=== PATIENT | male | born 1995 | race Caucasian/White ===

== ENCOUNTER 2018-02-07 07:20 | Observation (INO) | payer SELFPAY ==
[~2018-02-07] VITALS: Ht 182.9 cm; Wt 75.8 kg
[2018-02-07] MEDS ORDERED: SODIUM CHLORIDE 0.9% 1000ML 1,000 ML IV STA (07:38)
[2018-02-07] MEDS ORDERED: ONDANSETRON HCL INJ 2 MG/ML VIAL IV STA (07:38)
[2018-02-07] MEDS ORDERED: MORPHINE SULFATE 2 MG/ML SYR IV STA (07:38)
[2018-02-07] MEDS ORDERED: PANTOPRAZOLE 40 MG 10ML VIAL IV STA (07:38)
[2018-02-07 07:50] LABS: BASOPHILS % 0.2 % (0.0-1.0); EOSINOPHILS # (AUTO) 0.2 (0.0-0.4); HEMATOCRIT 41.7 % (38.2-49.6); HEMOGLOBIN 14.7 g/dL (14.0-18.0); LYMPHOCYTES % 11.2 % (18.0-39.1); MEAN CORPUSCULAR HEMOGLOBIN 30.2 pg (28-32); MEAN CORPUSCULAR HGB CONC 35.3 g/dL (31-35); MEAN CORPUSCULAR VOLUME 85.6 fL (81-99); MONOCYTES # (AUTO) 0.8 (0.2-0.8); MONOCYTES % 8.8 % (4.4-11.3); NEUTROPHILS # (AUTO) 7.2 (2.1-6.9); NEUTROPHILS % 77.6 % (38.7-80.0); PLATELET COUNT 170 x10e3/uL (140-360); RED BLOOD COUNT 4.87 x10e6/uL (4.3-5.7); RED CELL DISTRIBUTION WIDTH 12.2 % (11.7-14.4)
[2018-02-07 07:52] LABS: BILIRUBIN,URINE NEGATIVE (NEGATIVE); CLARITY,URINE CLEAR (CLEAR); COLOR,URINE YELLOW (YELLOW); KETONES,URINE NEGATIVE (NEGATIVE); LEUKOCYTE ESTERASE ,URINE NEGATIVE (NEGATIVE); NITRITE,URINE NEGATIVE (NEGATIVE); PROTEIN,URINE DIPSTICK NEGATIVE (NEGATIVE); URINE UROBILINOGEN 0.2 mg/dL (0.2 - 1)
[2018-02-07 08:00] LABS: INR 1.04; PARTIAL THROMBOPLASTIN TIME 27.4 seconds (23.8-35.5); PROTHROMBIN TIME 12.8 seconds (11.9-14.5)
[2018-02-07 08:04] LABS: EPITHELIAL CELLS,URINE RARE /LPF
[2018-02-07 08:09] LABS: ALANINE AMINOTRANSFERASE 15 IU/L (0-55); ALBUMIN 4.6 g/dL (3.5-5.0); ALBUMIN/GLOBULIN RATIO 1.8 (0.8-2.0); ALKALINE PHOSPHATASE 46 IU/L (40-150); AMYLASE 267 U/L (25-125); ANION GAP 14.6 mmol/L (8-16); BLOOD UREA NITROGEN 16 mg/dL (7-26); BUN/CREATININE RATIO 15 (6-25); CALCIUM 9.9 mg/dL (8.4-10.2); CARBON DIOXIDE 24 mmol/L (22-29); CHLORIDE 104 mmol/L (98-107); CREATININE, SERUM 1.06 mg/dL (0.72-1.25); EST GLOMERULAR FILTRATION RATE > 60 ML/MIN (60-); GLUCOSE 95 mg/dL (74-118); LIPASE 465 U/L (8-78); MAGNESIUM 1.9 MG/DL (1.3-2.1); POTASSIUM 3.6 mmol/L (3.5-5.1); SODIUM 139 mmol/L (136-145)
[2018-02-07 08:23] LABS: AMPHETAMINES SCREEN,URINE NEGATIVE (NEGATIVE); BENZODIAZEPINES SCREEN,URINE NEGATIVE (NEGATIVE); PHENCYCLIDINE SCREEN,URINE NEGATIVE (NEGATIVE)
[2018-02-07 08:30] LABS: CHOL/HDL RATIO 2.8 (3.9-4.7)
[2018-02-07 08:32] LABS: CREATINE KINASE 304 IU/L (30-200)
--- NOTE | 2018-02-07 08:40 | Diagnostic Imaging Report ---
PROCEDURE: A single AP view of the chest. COMPARISON: None. INDICATIONS: ABDOMINAL PAIN FINDINGS: Lines/tubes: None. Lungs: The lungs are well inflated and clear. There is no evidence of pneumonia or pulmonary edema. Pleura: There is no pleural effusion or pneumothorax. Heart and mediastinum: The heart and the mediastinum are unremarkable. Bones: No acute bony abnormality. Upper abdomen: No evidence of free air under the diaphragms. IMPRESSION: No acute cardiopulmonary disease. Dictated by: TEAGAN DHALIWAL M.D. on 02/07/2018 at 8:46 Electronically approved by: TEAGAN DHALIWAL M.D. on 02/07/2018 at 8:46
--- NOTE | 2018-02-07 09:48 | Diagnostic Imaging Report ---
PROCEDURE: CT ABDOMEN AND PELVIS WITH CONTRAST TECHNIQUE: The abdomen and pelvis were scanned utilizing a multidetector helical scanner from the diaphragm to the lesser trochanter after the IV administration of 370 cc of Isovue 370 and the oral administration of 90 cc of water. Coronal and sagittal multiplanar reformations were obtained. COMPARISON: CT Abdomen/Pelvis 01/06/16. INDICATIONS: ABDOMEN PAIN FINDINGS: LOWER THORAX: Normal. HEPATOBILIARY: No focal hepatic lesions. No biliary ductal dilatation. SPLEEN: No splenomegaly. PANCREAS: No focal masses or ductal dilatation. ADRENALS: No adrenal nodules. KIDNEYS/URETERS: No hydronephrosis, stones, or solid mass lesions. PELVIC ORGANS/BLADDER: Unremarkable. PERITONEUM / RETROPERITONEUM: No free air or fluid. LYMPH NODES: No lymphadenopathy. VESSELS: Unremarkable. GI TRACT: No distention or wall thickening. Normal appendix. Mild apparent transverse colonic wall thickening is felt to be related to underdistention. Interval resolution of previously noted wall thickening in the stomach. BONES AND SOFT TISSUES: Unremarkable. IMPRESSION: No acute abnormality in the abdomen or pelvis. Normal appendix. Dictated by: TEAGAN DHALIWAL M.D. on 02/07/2018 at 9:55 Electronically approved by: TEGAAN DHALIWAL M.D. on 02/07/2018 at 9:55
[2018-02-07] MEDS ORDERED: SODIUM CHLORIDE 0.9% 50ML 50 ML ONE (10:24)
[2018-02-07] MEDS ORDERED: IOPAMIDOL 370 MG/ML 200 ML INFUS..BTL INJ ONE (10:24)
[2018-02-07] MEDS ORDERED: LEVOFLOXACIN 500MG/D5W 100ML IV SCH (11:15)
[2018-02-07] MEDS ORDERED: MORPHINE SULFATE 2 MG/ML SYR IV PRN (13:00)
[2018-02-07 13:17] VITALS: BP 114/54
[2018-02-07 13:45] VITALS: BP 114/54
[2018-02-07] MEDS ORDERED: FENTANYL 25 MCG/HR PATCH TOP SCH (14:45)
[2018-02-07 15:29] LABS: THYROID STIMULATING HORMONE 1.173 uIU/mL (0.350-4.940)
[2018-02-07] MEDS: METRONIDAZOLE 500MG/NS 100ML 100 ML IV SCH ×2 (15:37→23:06)
[2018-02-07 15:54] VITALS: BP 126/68
[2018-02-07] MEDS: NICOTINE 14 MG/EA PATCH TOP SCH (16:16)
[2018-02-07] MEDS: FAMOTIDINE 20 MG TAB PO SCH (16:16)
[2018-02-07 16:58] LABS: CREATINE KINASE MB 3.1 ng/mL (0-5.0)
[2018-02-07] MEDS ORDERED: PEG (High)/E-LYTE SOLN 4,000 ML BTL PO ONE (17:30)
--- NOTE | 2018-02-07 17:43 | Consultation ---
DATE OF CONSULTATION: February 07, 2018 GASTROENTEROLOGY CONSULTATION REQUESTING PHYSICIAN: Dr. Ezra Murillo. REASON FOR CONSULT: Abdominal pain. CHIEF COMPLAINT: Abdominal pain. HISTORY OF PRESENT ILLNESS: Patient is a 22-year-old male with past medical history of arrhythmia, who presented to the ED last night with reports of cramping epigastric abdominal pain along with diarrhea and nausea. He states having this for the last 2 days. He attributes to taking BC Powder daily due to joint pains that he has due to his work conditions. He denies any hematemesis or vomiting, fevers or chills. He denies any melena. He has had this episode in the past in 2005. He denies any recent travel or recent stomach infection. REVIEW OF SYSTEMS: No chest pain, no shortness of breath. No rashes. No dyspnea, no orthopnea. No loss of consciousness. No urinary symptoms, no hematuria. SURGICAL HISTORY: None. SOCIAL HISTORY: He attributes to smoking marijuana and drinking occasionally. PAST MEDICAL HISTORY: Negative. MEDICATIONS: Takes BC Powder on a daily basis. ALLERGIES: NO KNOWN DRUG ALLERGIES. FAMILY HISTORY: Patient is adopted and claims to have very minimal family history. PHYSICAL EXAMINATION VITAL SIGNS: Normal. APPEARANCE: Alert, oriented x3. No acute distress. EYES: Pupils equal, round and reactive to light. Normal inspection. ENT: Ears normal, nose normal. NECK: Nontender, supple. HEART: Normal heart rate and rhythm. Heart sounds normal. Pulse normal. RESPIRATORY: Clear to auscultation bilaterally. Breath sounds normal. Chest nontender. ABDOMEN: Soft. Tenderness to palpation diffusely. Bowel sounds normal. BACK: Normal inspection. SKIN: Warm and dry. No rash. EXTREMITIES: Normal range of motion. No edema. NEUROLOGIC: Alert and oriented x3. Normal speech. Normal gait. IMAGING: CT results were negative for any colitis or diverticulitis. ASSESSMENT 1. Cramping abdominal pain. 2. Diarrhea. 3. Chronic nonsteroidal anti-inflammatory drug use. 4. Nausea. 5. Substance abuse. PLAN 1. We will go ahead and proceed with an EGD and colonoscopy to be done tomorrow by Dr. Johnson. Patient will start on the prep and will be n.p.o. after midnight. Explained procedure to patient in detail. 2. IV fluids continued. 3. Fecal occult blood. 4. Diarrhea stool workup and IBD panel. 5. Monitor H\T\H. Monitor lipase levels. 6. Follow up in clinic for biopsy results. Thank you, Dr. Murillo, for the consult. We will follow. Dictated by: Coleen Zheng PA-C Job#: [id number] EV MTDD
[2018-02-07] MEDS: SODIUM CHLORIDE 0.9% 1000ML 1,000 ML IV SCH (18:02)
[2018-02-07 20:00] VITALS: BP 112/57
[2018-02-07 20:05] VITALS: BP 126/68
--- NOTE | 2018-02-07 20:49 | Cardiology Report ---
DATE OF STUDY: ECHOCARDIOGRAM ATTENDING PHYSICIAN: Dr. Krystle Murillo M-MODE: Normal chamber and wall dimensions. Normal contractility. Normal mitral and aortic valves. No pericardial effusion. SECTOR SCAN: Normal chamber and wall dimensions. Normal contractility. Normal mitral, aortic, and tricuspid valves. No pericardial effusion. CARDIAC DOPPLER STUDY WITH COLOR: Mild pulmonic and tricuspid regurgitation. CONCLUSION: 1. Left ventricular ejection fraction is approximately 60%. 2. Mild tricuspid and pulmonic regurgitation. Job#: [id number] cc:KRYSTLE MURILLO MD
--- NOTE | 2018-02-07 21:13 | Consultation ---
DATE OF CONSULTATION: February 07, 2018 ATTENDING PHYSICIAN: Dr. Krystle Murillo CLINICAL HISTORY: This is a 22-year-old athletic young man who presented with severe abdominal pains and while in the emergency room, he was noted to have bradycardia with heart rate dropping down to 32 beats per minute, in a sinus rhythm. He, however, feels perfectly fine stating that he has tried meditation in the past and has, on purpose, dropped his own heart rate. 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 With further monitoring, his heart rate has spontaneously improved to 52 beats per minute. Cardiology consultation requested. PAST MEDICAL HISTORY: Noncontributory. He was, however, hospitalized in 2012 with episode of chest pain, workup of which was negative. When he was in high school around 2012, he apparently had sinus arrhythmias and according to him, this caused him to lose scholarship to go play football. PERSONAL AND SOCIAL HISTORY: He smokes cigarettes and marijuana in moderate amount. He drinks rarely. In the distant past, he has used all kinds of drugs including cocaine. Apparently, he suffers from occasional panic attack. 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 His work is very physical. FAMILY HISTORY: He is adopted, therefore unknown. PAST SURGERIES: None. REVIEW OF SYSTEMS: Noncontributory. MEDICATIONS: BC powder. ALLERGIES: NONE KNOWN. PHYSICAL EXAMINATION: VITAL SIGNS: Stable. CARDIAC: Jugular veins were not distended. S1 and S2 were regular. Somewhat slow. There is no appreciable murmur. LUNGS: Clear. ABDOMEN: Soft. Bowel sounds are present. EXTREMITIES: Showed no cyanosis, clubbing, edema. LABORATORY STUDIES: CT of the abdomen was negative for colitis and diverticulitis. IMPRESSION: 1. Severe bradycardia, possibly exacerbated by vagal reaction to abdominal pain, although I baseline his baseline is around 45 beats per minute also. 2. History of sinus arrhythmia. 3. Recurrent crampy abdominal pains with 1 previous hospitalization here in 2016. 4. Intermittent diarrhea. 5. History of drug abuse. RECOMMENDATION: Cardiac monitoring. The echocardiogram and thyroid function studies were negative. Thank you very much. Job#: [id number] cc:KRYSTLE MURILLO MD
[2018-02-07 23:08] VITALS: BP 126/68
[2018-02-08] VITALS (8 sets, daily range): BP systolic 107–120; BP diastolic 50–80
[2018-02-08] MEDS ORDERED: HYDROMORPHONE 1MG/1ML INJ IV PRN (00:45)
[2018-02-08 04:23] LABS: OCCULT BLOOD STOOL POSITIVE (NEGATIVE)
[2018-02-08 05:57] LABS: BASOPHILS % 0.3 % (0.0-1.0); EOSINOPHILS # (AUTO) 0.3 (0.0-0.4); EOSINOPHILS % 3.6 % (0.0-6.0); HEMATOCRIT 38.6 % (38.2-49.6); HEMOGLOBIN 13.1 g/dL (14.0-18.0); LYMPHOCYTES # (AUTO) 1.4 (1.0-3.2); LYMPHOCYTES % 18.1 % (18.0-39.1); MEAN CORPUSCULAR HEMOGLOBIN 29.9 pg (28-32); MEAN CORPUSCULAR HGB CONC 33.9 g/dL (31-35); MEAN CORPUSCULAR VOLUME 88.1 fL (81-99); MONOCYTES # (AUTO) 0.7 (0.2-0.8); MONOCYTES % 9.7 % (4.4-11.3); NEUTROPHILS # (AUTO) 5.1 (2.1-6.9); NEUTROPHILS % 68.2 % (38.7-80.0); PLATELET COUNT 153 x10e3/uL (140-360); RED BLOOD COUNT 4.38 x10e6/uL (4.3-5.7); RED CELL DISTRIBUTION WIDTH 12.4 % (11.7-14.4)
[2018-02-08 06:12] LABS: ALANINE AMINOTRANSFERASE 12 IU/L (0-55); ALBUMIN 3.6 g/dL (3.5-5.0); ALBUMIN/GLOBULIN RATIO 1.8 (0.8-2.0); ALKALINE PHOSPHATASE 41 IU/L (40-150); ANION GAP 12.4 mmol/L (8-16); BLOOD UREA NITROGEN 10 mg/dL (7-26); BUN/CREATININE RATIO 11 (6-25); CALCIUM 8.8 mg/dL (8.4-10.2); CARBON DIOXIDE 25 mmol/L (22-29); CHLORIDE 106 mmol/L (98-107); CREATININE, SERUM 0.93 mg/dL (0.72-1.25); EST GLOMERULAR FILTRATION RATE > 60 ML/MIN (60-); GLUCOSE 88 mg/dL (74-118); LIPASE 41 U/L (8-78); POTASSIUM 4.4 mmol/L (3.5-5.1); SODIUM 139 mmol/L (136-145)
[2018-02-08] MEDS: METRONIDAZOLE 500MG/NS 100ML 100 ML IV SCH (06:19)
[2018-02-08] MEDS: SODIUM CHLORIDE 0.9% 1000ML 1,000 ML IV SCH (06:44)
[2018-02-08 08:50] LABS: C DIFFICILE TOXIN A&B AMP PROB NEGATIVE (NEGATIVE)
[2018-02-08] MEDS: FAMOTIDINE 20 MG TAB PO SCH (10:02)
[2018-02-08] MEDS: NICOTINE 14 MG/EA PATCH TOP SCH (10:02)
[2018-02-08] MEDS: ONDANSETRON HCL INJ 2 MG/ML VIAL IV PRN ×2 (10:02→17:02)
[2018-02-08] MEDS: DEXTROSE 5%/0.45% SOD CHL 1,000 ML IV SCH ×2 (15:03→21:19)
[2018-02-08] MEDS: PANTOPRAZOLE 40 MG 10ML VIAL IV SCH (16:26)
[2018-02-09] VITALS: BP 108/63
--- NOTE | 2018-02-09 01:16 | Progress Note ---
DATE: February 08, 2018 SUBJECTIVE: Patient reports improvement in diarrhea. He was nauseous, had 1 bout of vomiting this morning. No associated fever or chills. REVIEW OF SYSTEMS GENERAL: No fever or chills. CVS: No chest pain or palpitation. RESPIRATORY: No cough or expectoration. MEDICATIONS: Reviewed as per AUG. PHYSICAL EXAMINATION VITAL SIGNS: Temperature 98.9, pulse 46, respirations 16, blood pressure 119/55, and oxygen saturation 98% on room air. GENERAL: Not in any apparent distress. Oral mucosa is moist. Anicteric sclerae. ABDOMEN: Soft and nondistended. Mild lower quadrant tenderness on deep palpation without rebound, rigidity, or guarding. Positive bowel sounds. EXTREMITIES: Warm. LABS: Reviewed. WBC 7.53, hemoglobin 13.1, hematocrit 38.6, and platelet count 153,000. Electrolytes normal. Urine drug screen positive for marijuana. Stool C. difficile negative. IMPRESSIONS 1. Self-limiting acute gastroenteritis. 2. Upper gastrointestinal symptoms secondary to use of marijuana. PLAN 1. Counseled him to quit smoking marijuana. 2. No need for any antibiotic. 3. Continue supportive care with IV fluid and antiemetics. 4. No indication for any upper endoscopy or colonoscopy. Job#: [id number] VIGNESH
[2018-02-09] MEDS: ONDANSETRON HCL INJ 2 MG/ML VIAL IV PRN (01:34)
[2018-02-09 04:00] VITALS: BP 118/54
[2018-02-09 05:21] LABS: BASOPHILS % 0.4 % (0.0-1.0); EOSINOPHILS # (AUTO) 0.2 (0.0-0.4); EOSINOPHILS % 3.6 % (0.0-6.0); HEMATOCRIT 38.2 % (38.2-49.6); LYMPHOCYTES # (AUTO) 1.3 (1.0-3.2); LYMPHOCYTES % 25.8 % (18.0-39.1); MONOCYTES # (AUTO) 0.4 (0.2-0.8); MONOCYTES % 8.5 % (4.4-11.3); NEUTROPHILS # (AUTO) 3.1 (2.1-6.9); NEUTROPHILS % 61.5 % (38.7-80.0); PLATELET COUNT 143 x10e3/uL (140-360); RED BLOOD COUNT 4.34 x10e6/uL (4.3-5.7); RED CELL DISTRIBUTION WIDTH 12.2 % (11.7-14.4)
[2018-02-09 05:54] LABS: ANION GAP 12.3 mmol/L (8-16); BLOOD UREA NITROGEN 6 mg/dL (7-26); BUN/CREATININE RATIO 6 (6-25); CALCIUM 9.3 mg/dL (8.4-10.2); CARBON DIOXIDE 26 mmol/L (22-29); CHLORIDE 105 mmol/L (98-107); CREATININE, SERUM 0.95 mg/dL (0.72-1.25); EST GLOMERULAR FILTRATION RATE > 60 ML/MIN (60-); GLUCOSE 95 mg/dL (74-118); MAGNESIUM 1.7 MG/DL (1.3-2.1); POTASSIUM 4.3 mmol/L (3.5-5.1); SODIUM 139 mmol/L (136-145)
[2018-02-09] MEDS ORDERED: LOPERAMIDE2 MG PO (07:39)
[2018-02-09] MEDS ORDERED: protonix PO (07:39)
[2018-02-09 08:26] VITALS: BP 110/56
[2018-02-09] MEDS: DEXTROSE 5%/0.45% SOD CHL 1,000 ML IV SCH (08:55)
[2018-02-09] MEDS: PANTOPRAZOLE 40 MG 10ML VIAL IV SCH (08:55)
[2018-02-09] MEDS: NICOTINE 14 MG/EA PATCH TOP SCH (08:55)
[2018-02-09 12:18] VITALS: BP 145/71
--- NOTE | 2018-02-09 15:47 | Discharge Summary ---
ADMISSION DIAGNOSES 1. Pancreatitis. 2. Gastroenteritis. 3. Abdominal pain. 4. Bradycardia. DISCHARGE DIAGNOSES 1. Pancreatitis. 2. Gastroenteritis. 3. Abdominal pain. 4. Bradycardia. 5. Smoker. 6. Cannabis use. HISTORY: The patient has a history of dysrhythmia and colitis. No surgical history. HOSPITAL COURSE: A 22-year-old male presents to the ER with a 2-day history of diarrhea and abdominal pain. The patient states he takes 1-2 BC powder packets a daily because of work and he has pain in his hands. He also complains of dizzy spells while working. On admission, the patient had a chest x-ray which was negative. CT of the abdomen that showed no acute abnormality in the abdomen or pelvis. Urine culture was negative. GI was consulted who initially wanted to do an EGD but then later canceled the procedure. The patient was found to have a GI bleed, although the hemoglobin remained stable. The patient's lipase was elevated on admission at 465, which resolved by the next day. C. diff. was negative. Per GI, the patient had stool studies sent, but are still pending at the time of discharge. The patient says his diarrhea is better, and he is able to tolerate p.o. without nausea or vomiting. The patient will discharge home with Pepcid and loperamide p.r.n. He will follow up with GI as discussed and primary care in 1-2 weeks. We discussed the need for cessation of smoking weed. The patient says that was what makes him comfortable, and he will continue to do that. The patient is afebrile. Vital signs stable at the time of discharge. The patient is ready to go home. Dictated by: Pilar Haji NP KRYSTLE PITTMAN MD Job#: [id number]
== END 2018-02-09 12:32 | disposition home or self-care (01) ==
LOC: ER 07:20 → ERHOLD 11:12 → IMCU 13:01
PROVIDERS: ADMIT Internal Medicine; ATTEND Internal Medicine
DX: K85.90 Acute pancreatitis without necrosis or infection, unspecified (principal); A09 Infectious gastroenteritis and colitis, unspecified; R00.1 Bradycardia, unspecified; Z72.0 Tobacco use; F12.10 Cannabis abuse, uncomplicated; Z79.1 Long term (current) use of non-steroidal anti-inflammatories (NSAID); K92.2 Gastrointestinal hemorrhage, unspecified
CPT/HCPCS: 36415 ×3; 71045; 74177; 80048; 80053 ×2; 80061; 80307; 81001; 82150; 82270; 82550; 82553; 83690 ×3; 83735 ×2; 84436; 84443; 84479; 84484; 85025 ×3; 85610; 85730; 86021; 86256; 86671; 87086; 87400; 87493; 93005; 93306; 99284; G0378 ×3; J1170; J1956; J2270; J2405 ×3; J7030 ×2; Q9967